=== PATIENT | female | born 1985 | race Caucasian/White ===

== ENCOUNTER 2021-02-06 23:10 | Emergency (ER) | payer OTHER ==
[~2021-02-06] VITALS: Ht 162.6 cm; Wt 54.4 kg
[2021-02-06] MEDS ORDERED: CEPHALEXIN500 MG PO (23:50)
[2021-02-06] MEDS ORDERED: IBUPROFEN 600600 M1 PO (23:50)
[2021-02-07 00:10] VITALS: BP 101/45
== END 2021-02-07 00:11 | disposition home or self-care (01) ==
LOC: M.ERS 23:10
DX: S60.351A Superficial foreign body of right thumb, initial encounter (principal); X58.XXXA Exposure to other specified factors, initial encounter; Y93.89 Activity, other specified; Y92.89 Other specified places as the place of occurrence of the external cause; Y99.8 Other external cause status